=== PATIENT | female | born 1970 | race Caucasian/White ===

== ENCOUNTER 2020-06-18 12:46 | Emergency (ER) | payer SELFPAY ==
[~2020-06-18] VITALS: Ht 160 cm; Wt 71.7 kg
[2020-06-18 12:49] VITALS: BP 131/82
--- NOTE | 2020-06-18 13:06 | NUR ---
RECEIVED A 49/F FROM TRIAGE WITH A C/O ABDOMINAL PAIN - PT REPORTS THAT SHE HAS RIGHT SIDED FLANK PAIN RADIATING TO LOWER ABDOMEN X 3 DAYS. PT DENIES N/V/D. REPORTS URINARY URGENCY BUT DENEIS DYSURIA/HEMATURIA. ABD IS SOFT, NON TENDER, NO DISTENTION NOTED. IN BED FOR MSE. NO OBVIOUS DISTRESS NOTED.
[2020-06-18] MEDS ORDERED: LIDOCAINE VISCOUS 2% 20 ML UDC ONE (13:09)
[2020-06-18] MEDS ORDERED: ALUMINUM HYD/MAG/SIMETHICONE 30 ML UDC ONE (13:09)
[2020-06-18] MEDS ORDERED: DICYCLOMINE HCL LIQUID 10 MG/5 ML UDC ONE (13:10)
[2020-06-18] MEDS: DICYCLOMINE HCL LIQUID 20 MG, ALUMINUM HYD/MAG/SIMETHICONE 30 ML, LIDOCAINE VISCOUS 2% ... PO ONE ×3 (13:10)
--- NOTE | 2020-06-18 13:10 | NUR ---
MEDICATED ORDERED -- WILL REEVALUATE.
--- NOTE | 2020-06-18 13:22 | NUR ---
PT REPORTS RELIEF OF PAIN POST GI COCKTAIL ADMIN. STATES PAIN AT 12/09. OKAY TO D/C PER DR PONCE.
[2020-06-18 13:23] VITALS: BP 131/82
== END 2020-06-18 13:23 | disposition home or self-care (01) ==
LOC: MED 12:46
DX: R10.13 Epigastric pain (principal)
CPT/HCPCS: 81002; 81025; 99283